=== PATIENT | female | born 1980 | race Caucasian/White ===

== ENCOUNTER → 2024-07-28 10:46 | Outpatient (REF) | payer OTHER, SELFPAY ==
[2024-07-28 13:16] LABS: Hepatitis B Surface Antibody Positive
[2024-07-28 15:46] LABS: Mumps Virus IgG Positive; Rubeola (Measles) IgG Positive
[2024-07-28 18:26] LABS: Rubella Positive
[2024-07-30 10:41] LABS: Quantiferon Mitogen minus NIL 9.99 IU/mL; Quantiferon NIL 0.01 IU/mL; Quantiferon TB Gold Plus Negative (Negative)
== END ==
LOC: REG 10:46
PROVIDERS: ATTENDING PHYSICIAN Nurse Practitioner
DX: Z23 Encounter for immunization (principal)
CPT/HCPCS: 36415; 86480; 86706; 86735; 86762; 86765